=== PATIENT | female | born 1950 | race African-American/Black ===

== ENCOUNTER → 2024-10-30 | Outpatient (REF) | payer MEDICARE ==
[~2024-10-30] MED LIST: IOPAMIDOL 370 MG/ML 100 ML INFUS..BTL INJ ONE; METOPROLOL TARTRATE INJ 1 MG/ML VIAL ONE; NITROGLYCERIN 0.4 MG SUBL ONE; SODIUM CHLORIDE 0.9% 100 ML ONE
[2024-10-30 13:09] LABS: EST GLOMERULAR FILTRATION RATE 88.0 ML/MIN (>=60)
== END ==
LOC: CT 11:16
PROVIDERS: ATTEND Internal Medicine Cardiovascular Disease
DX: R94.39 Abnormal result of other cardiovascular function study (principal)
CPT/HCPCS: 36415; 75574; 82565; 84520; J7050; Q9967; 75580